=== PATIENT | female | born 1990 | race Caucasian/White ===

== ENCOUNTER 2016-08-20 11:59 | Inpatient (IN) | payer OTHER ==
[2016-08-20] MEDS ORDERED: Sodium Chloride 0.9% 10 ML Syringe FLUSH PRN (12:50)
[2016-08-20] MEDS ORDERED: Nalbuphine 20 MG/1 ML Amp IVPUSH PRN (12:50)
[2016-08-20] MEDS ORDERED: Lidocaine 1% 50 ML MDV INJECT PRN (12:50)
[2016-08-20] MEDS ORDERED: Oxytocin/Lactated Ringers 10 UNIT/1,000 ML BAG IV SCH (13:00)
--- NOTE | 2016-08-20 14:54 | PCM.PREANE ---
Preanesthetic Assessment - Anesthesia/Transfusion/Family Hx Anesthesia History: Prior Anesthesia Without Reaction Family History of Anesthesia Reaction: No Transfusion History: No Prior Transfusion(s) Intubation History: Unknown - Review of Systems General: No Symptoms Pulmonary: No Symptoms Cardiovascular: No Symptoms Gastrointestinal: Other (GERD at HS) Neurological: No Symptoms Other: Reports: None, Depression (controlled with medication ) - Physical Assessment Respiratory Rate: 18 Vital Signs: Last Vital Signs Temp 36.8 C 08/20/16 12:50 Pulse 87 08/20/16 12:50 Resp 18 08/20/16 12:50 BP 138/87 08/20/16 12:50 Pulse Ox Height: 1.65 m Weight: 97.522 kg ASA Class: 2 Mental Status: Alert & Oriented x3 Airway Class: Mallampati = 2 Dentition: Reports: Normal Dentition Thyro-Mental Finger Breadths: 3 Mouth Opening Finger Breadths: 3 ROM/Head Extension: Full Lungs: Clear to auscultation, Normal respiratory effort Cardiovascular: Regular Rate, Regular Rhythm - Lab Values: Laboratory Last Values WBC 12.85 K/mm3 (3.98-10.04) H 08/20/16 13:07 RBC 4.61 M/mm3 (3.98-5.22) 08/20/16 13:07 Hgb 13.2 gm/L (11.2-15.7) 08/20/16 13:07 Hct 39.7 % (34.1-44.9) 08/20/16 13:07 MCV 86.1 fl (79.4-94.8) 08/20/16 13:07 MCH 28.6 pg (25.6-32.2) 08/20/16 13:07 MCHC 33.2 g/dl (32.2-35.5) 08/20/16 13:07 RDW Std Deviation 42.9 fL (36.4-46.3) 08/20/16 13:07 Plt Count 212 K/mm3 (182-369) 08/20/16 13:07 MPV 10.1 fl (9.4-12.3) 08/20/16 13:07 - Allergies Allergies/Adverse Reactions: Allergies Allergy/AdvReac Type Severity Reaction Status Date / Time azithromycin Allergy Intermediate Diarrhea Verified 08/20/16 12:49 erythromycin base Allergy Intermediate Diarrhea Verified 08/20/16 12:49 latex Allergy Mild Rash Verified 08/20/16 12:50 - Blood Blood Available: No Product(s) Available: None - Acknowledgements Anesthesia Type Planned: Epidural Pt an Appropriate Candidate for the Planned Anesthesia: Yes Alternatives and Risks of Anesthesia Discussed w Pt/Guardian: Yes Pt/Guardian Understands and Agrees with Anesthesia Plan: Yes PreAnesthesia Questionnaire HEENT History: Reports: None Respiratory History: Reports: Asthma Other Respiratory History: exercise induced as a child, nothing as an adult, does not have an inhaler Genitourinary History: Reports: Urinary incontinence 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: Musculoskeletal History: Reports: None Neurological History: Reports: Headaches, chronic Psychiatric History: Reports: ADHD, Anxiety, Depression Other Psychiatric History: on zoloft - Infectious Disease History Infectious Disease History: Reports: None - Past Surgical History HEENT Surgical History: Reports: Oral surgery Respiratory Surgical History: Reports: None Musculoskeletal Surgical History: Reports: Ganglion cyst Other Musculoskeletal Surgeries/Procedures:: wrist Dermatological Surgical History: Reports: None - SUBSTANCE USE Smoking Status *Q: Former Smoker Tobacco Use Within Last Twelve Months: No Second Hand Smoke Exposure: No Recreational Drug Use History: No - HOME MEDS Home Medications: Home Meds Sertraline [Zoloft] 100 mg PO DAILY 04/20/16 [History] PNV95/Ferrous Fumarate/FA [ Vitamin Tablet] 1 each PO DAILY 08/20/16 [ History] - CURRENT (IN HOUSE) MEDS Current Meds: Current Medications Lactated Ringer's (Ringers, Lactated) 1,000 mls @ 100 mls/hr IV ASDIRECTED DIEGO Oxytocin/Lactated Ringer's (Pitocin In Lr 10 Units/1,000 Ml) 10 unit in 1,000 mls @ 100 mls/hr IV ASDIRECTED DIEGO Lidocaine HCl (Xylocaine 1%) 50 ml INJECT ONETIME PRN PRN Reason: Pain Nalbuphine HCl (Nubain) 10 mg IVPUSH Q2H PRN PRN Reason: Pain (moderate 4-6) Sodium Chloride (Saline Flush) 10 ml FLUSH ASDIRECTED PRN PRN Reason: Keep Vein Open
[2016-08-20] MEDS ORDERED: ePHEDrine 50 MG/ML SDV IVPUSH PRN (15:14)
[2016-08-20] MEDS ORDERED: fentaNYL 100 MCG/2 ML SDV EPIDUR PRN (15:14)
[2016-08-20] MEDS ORDERED: diphenhydrAMINE 50 MG/ML SDV IVPUSH PRN (15:14)
[2016-08-20] MEDS ORDERED: Ondansetron 4 MG/2 ML SDV IVPUSH PRN (15:14)
[2016-08-20] MEDS ORDERED: Bupivacaine/fentaNYL/NS 100 ML Bag EPIDUR SCH (15:15)
--- NOTE | 2016-08-20 22:04 | PCM.LDHP ---
L&D History of Present Illness - General Date of Service: 08/20/16 Admit Problem/Dx: Patient Status Order with Admit Dx/Problem 08/20/16 12:50 Patient Status [ADT] Routine Admission Diagnosis/Problem Admission Diagnosis/Problem Source of Information: Patient - History of Present Illness Introduction:: 25 year old female here with SROM clear fluid at 9 am. Minimal to no contractions. Improves with: Reports: None Worsens with: Reports: None Associated Symptoms: Reports: N - Related Data Allergies/Adverse Reactions: Allergies Allergy/AdvReac Type Severity Reaction Status Date / Time azithromycin Allergy Intermediate Diarrhea Verified 08/20/16 12:49 erythromycin base Allergy Intermediate Diarrhea Verified 08/20/16 12:49 latex Allergy Mild Rash Verified 08/20/16 12:50 Home Medications: Home Meds Sertraline [Zoloft] 100 mg PO DAILY 04/20/16 [History] PNV95/Ferrous Fumarate/FA [ Vitamin Tablet] 1 each PO DAILY 08/20/16 [ History] Past Medical History HEENT History: Reports: None Respiratory History: Reports: Asthma Other Respiratory History: exercise induced as a child, nothing as an adult, does not have an inhaler Genitourinary History: Reports: Urinary incontinence 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: Musculoskeletal History: Reports: None Neurological History: Reports: Headaches, chronic Psychiatric History: Reports: ADHD, Anxiety, Depression Other Psychiatric History: on zoloft - Infectious Disease History Infectious Disease History: Reports: None - Past Surgical History HEENT Surgical History: Reports: Oral surgery Respiratory Surgical History: Reports: None Musculoskeletal Surgical History: Reports: Ganglion cyst Other Musculoskeletal Surgeries/Procedures:: wrist Dermatological Surgical History: Reports: None Social & Family History - Family History Family Medical History: Noncontributory - Tobacco Use Smoking Status *Q: Former Smoker Used Tobacco, but Quit: Yes Month Tobacco Last Used: 09/2012 Second Hand Smoke Exposure: No - Caffeine Use Caffeine Use: Reports: Coffee, Soda - Recreational Drug Use Recreational Drug Use: No H&P Review of Systems - Review of Systems: Review Of Systems: See Below General: Reports: no symptoms HEENT: Reports: no symptoms Pulmonary: Reports: No Symptoms Cardiovascular: Reports: no symptoms Gastrointestinal: Reports: No symptoms Genitourinary: Reports: no symptoms Musculoskeletal: Reports: no symptoms Skin: Reports: no symptoms Psychiatric: Reports: no symptoms Neurological: Reports: No Symptoms Hematologic/Lymphatic: Reports: no symptoms Immunologic: Reports: no symptoms L&D Exam - Exam Exam: See Below - Vital Signs Vital Signs: Last Vital Signs Temp 36.8 C 08/20/16 12:50 Pulse 87 08/20/16 12:50 Resp 18 08/20/16 14:55 BP 138/87 08/20/16 12:50 Pulse Ox Weight: 97.522 kg - OB Specific Contraction Intensity: Irritability movement: active Heart Rate (FHR) Variability: Moderate (6-25 bmp) Presentation: Vertex - Sweeney Score Sweeney Score Cervix Position: Midposition Sweeney Score Consistency: Soft Sweeney Score Effacement: 0-30% Sweeney Score Dilation: 1-2 cm Sweeney Score Infant's Station: -3 Sweeney Score Total: 4 - Exam General: alert, oriented HEENT: Conjunctiva clear Neck: supple Lungs: Clear to auscultation Cardiovascular: regular rate Genitourinary: Normal external exam Psychiatric: alert, normal affect, normal mood - Patient Data Lab Results last 24 hrs: Laboratory Results - last 24 hr 08/20/16 Range/Units 13:07 WBC 12.85 H (3.98-10.04) K/mm3 RBC 4.61 (3.98-5.22) M/mm3 Hgb 13.2 (11.2-15.7) gm/L Hct 39.7 (34.1-44.9) % MCV 86.1 (79.4-94.8) fl MCH 28.6 (25.6-32.2) pg MCHC 33.2 (32.2-35.5) g/dl RDW Std Deviation 42.9 (36.4-46.3) fL Plt Count 212 (182-369) K/mm3 MPV 10.1 (9.4-12.3) fl Result Diagrams: 08/20/16 13:07 Problem List Initiated/Reviewed/Updated: Yes Orders Last 24hrs: Active Orders 24 hr Category Date Time Status Patient Status [ADT] Routine ADT 08/20/16 12:50 Active Activity as Tolerated [RC] PFP Care 08/20/16 12:50 Active Communication Order [RC] ASDIRECTED Care 08/20/16 12:50 Active Notify Provider [RC] PFP Care 08/20/16 12:50 Active Notify Provider [RC] PRN Care 08/20/16 12:50 Active Peripheral IV Care [RC] . DIRECTED Care 08/20/16 12:50 Active Vital Signs [RC] PER UNIT ROUTINE Care 08/20/16 12:50 Active Regular Diet [DIET] Diet 08/20/16 Lunch Active Bupivacaine/fentaNYL/NS [fentaNYL/Bupivacaine/NS 2 MCG- Med 08/20/16 15:15 Active 0.125% 100 ML] 100 ml EPIDUR ASDIRECTED Lactated Ringers [Ringers, Lactated] 1,000 ml Med 08/20/16 13:00 Active IV ASDIRECTED Lidocaine 1% [Xylocaine 1%] Med 08/20/16 12:50 Active 50 ml INJECT ONETIME PRN Nalbuphine [Nubain] Med 08/20/16 12:50 Active 10 mg IVPUSH Q2H PRN Ondansetron [Zofran] Med 08/20/16 15:14 Active 4 mg IVPUSH ONETIME PRN Oxytocin/Lactated Ringers [Pitocin in LR 10 Units/1,000 Med 08/20/16 13:00 Active ML] 10 unit in 1,000 ml IV ASDIRECTED Sodium Chloride 0.9% [Saline Flush] Med 08/20/16 12:50 Active 10 ml FLUSH ASDIRECTED PRN diphenhydrAMINE [Benadryl] Med 08/20/16 15:14 Active 25 mg IVPUSH Q6H PRN ePHEDrine [ePHEDrine Sulfate] Med 08/20/16 15:14 Active 5 mg IVPUSH ASDIRECTED PRN fentaNYL [Sublimaze] Med 08/20/16 15:14 Active 100 mcg EPIDUR Q3H PRN Electronic Heart Tones Ext w TOCO [WOMSER] Oth 08/20/16 12:50 Ordered Routine Electronic Heart Tones Internal [WOMSER] Per Unit Oth 08/20/16 12:50 Ordered Routine Peripheral IV Insertion Adult [OM.PC] Routine Oth 08/20/16 12:50 Ordered Resuscitation Status Routine Resus Stat 08/20/16 12:50 Ordered Medication Orders Diphenhydramine HCl (Benadryl) 25 mg IVPUSH Q6H PRN PRN Reason: Pruritis Ephedrine Sulfate (Ephedrine Sulfate) 5 mg IVPUSH ASDIRECTED PRN PRN Reason: Hypotension Fentanyl (Sublimaze) 100 mcg EPIDUR Q3H PRN PRN Reason: Pain Fentanyl/Bupivacaine HCl (Fentanyl/Bupivacaine/Ns 2 Mcg-0.125% 100 Ml) 100 ml EPIDUR ASDIRECTED DIEGO Lactated Ringer's (Ringers, Lactated) 1,000 mls @ 100 mls/hr IV ASDIRECTED DIEGO Oxytocin/Lactated Ringer's (Pitocin In Lr 10 Units/1,000 Ml) 10 unit in 1,000 mls @ 100 mls/hr IV ASDIRECTED DIEGO Lidocaine HCl (Xylocaine 1%) 50 ml INJECT ONETIME PRN PRN Reason: Pain Nalbuphine HCl (Nubain) 10 mg IVPUSH Q2H PRN PRN Reason: Pain (moderate 4-6) Ondansetron HCl (Zofran) 4 mg IVPUSH ONETIME PRN PRN Reason: Nausea/Vomiting Sodium Chloride (Saline Flush) 10 ml FLUSH ASDIRECTED PRN PRN Reason: Keep Vein Open Assessment/Plan Comment:: Term PROM. - Recommended induction -Patient at this time declines. - Stressed that induction after PROM beyond 37 weeks reduces rates of chorioamnionitis, endometritis, and admissions to level two nursery.
[2016-08-20] MEDS: Sertraline 50 MG Tab PO SCH (22:39)
[2016-08-21] MEDS ORDERED: Oxytocin/Lactated Ringers 10 UNIT/1,000 ML BAG IV SCH ×2 (04:15→13:15)
[2016-08-21] MEDS: Lactated Ringers 1,000 ML IV SCH ×3 (04:16→19:56)
--- NOTE | 2016-08-21 13:14 | PCM.PNLD ---
Labor Progress Note - VS & Meds Vital Signs: Last Vital Signs Temp 36.8 C 08/20/16 12:50 Pulse 87 08/20/16 12:50 Resp 18 08/20/16 14:55 BP 138/87 08/20/16 12:50 Pulse Ox Active Medications: Current Medications Diphenhydramine HCl (Benadryl) 25 mg IVPUSH Q6H PRN PRN Reason: Pruritis Ephedrine Sulfate (Ephedrine Sulfate) 5 mg IVPUSH ASDIRECTED PRN PRN Reason: Hypotension Fentanyl (Sublimaze) 100 mcg EPIDUR Q3H PRN PRN Reason: Pain Fentanyl/Bupivacaine HCl (Fentanyl/Bupivacaine/Ns 2 Mcg-0.125% 100 Ml) 100 ml EPIDUR ASDIRECTED DIEGO Lactated Ringer's (Ringers, Lactated) 1,000 mls @ 100 mls/hr IV ASDIRECTED DIEGO Last Admin: 08/21/16 04:16 Dose: 100 mls/hr Oxytocin/Lactated Ringer's (Pitocin In Lr 10 Units/1,000 Ml) 10 unit in 1,000 mls @ 100 mls/hr IV ASDIRECTED DIEGO Oxytocin/Lactated Ringer's (Pitocin In Lr 10 Units/1,000 Ml) 10 unit in 1,000 mls @ 12 mls/hr IV TITRATE DIEGO; 2 MUNITS/MIN PRN Reason: Protocol Last Titration: 08/21/16 09:41 Dose: 18 munits/min, 108 mls/hr Oxytocin/Lactated Ringer's (Pitocin In Lr 10 Units/1,000 Ml) 10 unit in 1,000 mls @ 12 mls/hr IV TITRATE DIEGO; 2 MUNITS/MIN PRN Reason: Protocol Lidocaine HCl (Xylocaine 1%) 50 ml INJECT ONETIME PRN PRN Reason: Pain Nalbuphine HCl (Nubain) 10 mg IVPUSH Q2H PRN PRN Reason: Pain (moderate 4-6) Ondansetron HCl (Zofran) 4 mg IVPUSH ONETIME PRN PRN Reason: Nausea/Vomiting Sertraline HCl (Zoloft) 100 mg PO BEDTIME DIEGO Last Admin: 08/20/16 22:39 Dose: 100 mg Sodium Chloride (Saline Flush) 10 ml FLUSH ASDIRECTED PRN PRN Reason: Keep Vein Open - Uterine Contractions Contraction Intensity: Irritability Uterine Resting Tone: Soft - Monitoring Heart Rate (FHR) Baseline: 150 Heart Rate (FHR) Variability: Moderate (6-25 bmp) Decelerations: None, Late Strip Review: Category I - Vaginal Exam Dilation (cm): 2 Effacement (Percent): 50 Station: -3 Cervical Position: Posterior Sterile Vaginal Exam Performed By: Rosa Alvarez - Labor Progress (Free Text) Labor Progress: Again encouraged active management of labor. Discussed risks.
--- NOTE | 2016-08-21 17:27 | PCM.PNLD ---
Labor Progress Note - VS & Meds Vital Signs: Last Vital Signs Temp 36.8 C 08/20/16 12:50 Pulse 87 08/20/16 12:50 Resp 18 08/20/16 14:55 BP 138/87 08/20/16 12:50 Pulse Ox Active Medications: Current Medications Diphenhydramine HCl (Benadryl) 25 mg IVPUSH Q6H PRN PRN Reason: Pruritis Ephedrine Sulfate (Ephedrine Sulfate) 5 mg IVPUSH ASDIRECTED PRN PRN Reason: Hypotension Fentanyl (Sublimaze) 100 mcg EPIDUR Q3H PRN PRN Reason: Pain Fentanyl/Bupivacaine HCl (Fentanyl/Bupivacaine/Ns 2 Mcg-0.125% 100 Ml) 100 ml EPIDUR ASDIRECTED DIEGO Lactated Ringer's (Ringers, Lactated) 1,000 mls @ 100 mls/hr IV ASDIRECTED DIEGO Last Admin: 08/21/16 04:16 Dose: 100 mls/hr Oxytocin/Lactated Ringer's (Pitocin In Lr 10 Units/1,000 Ml) 10 unit in 1,000 mls @ 100 mls/hr IV ASDIRECTED DIEGO Oxytocin/Lactated Ringer's (Pitocin In Lr 10 Units/1,000 Ml) 10 unit in 1,000 mls @ 12 mls/hr IV TITRATE DIEGO; 2 MUNITS/MIN PRN Reason: Protocol Last Titration: 08/21/16 17:10 Dose: 28 munits/min, 168 mls/hr Lidocaine HCl (Xylocaine 1%) 50 ml INJECT ONETIME PRN PRN Reason: Pain Nalbuphine HCl (Nubain) 10 mg IVPUSH Q2H PRN PRN Reason: Pain (moderate 4-6) Ondansetron HCl (Zofran) 4 mg IVPUSH ONETIME PRN PRN Reason: Nausea/Vomiting Sertraline HCl (Zoloft) 100 mg PO BEDTIME DIEGO Last Admin: 08/20/16 22:39 Dose: 100 mg Sodium Chloride (Saline Flush) 10 ml FLUSH ASDIRECTED PRN PRN Reason: Keep Vein Open Discontinued Medications Oxytocin/Lactated Ringer's (Pitocin In Lr 10 Units/1,000 Ml) 10 unit in 1,000 mls @ 12 mls/hr IV TITRATE DIEGO; 2 MUNITS/MIN PRN Reason: Protocol Last Titration: 08/21/16 14:11 Dose: 24 munits/min, 144 mls/hr Oxytocin 20 unit/ Lactated (Ringer's) 1,002 mls @ 12 mls/hr IV TITRATE DIEGO - Uterine Contractions Uterine Monitoring Mode: External Oakley Contraction Intensity: Moderate Uterine Resting Tone: Soft - Monitoring Heart Rate (FHR) Baseline: 145 Heart Rate (FHR) Variability: Moderate (6-25 bmp) Decelerations: Early (Rare) Strip Review: Category I - Labor Progress (Free Text) Labor Progress: Assumed care for this patient at 1700. Patient presented yesterday AM after SROM at ~0930. Initially checked and found to be 2 / 50% / 3-, soft and posterior. Declined pitocin until about 0400 this am. Was checked at about 1500 and found to be 3-4 / 80% / 2-, soft and mid-position. Pitocin currently at 26. Reviewed with patient risks of prolonged ROM. At this time, however, status reassuring and she is finally starting to feel uncomfortable. Will continue present management. Defer SVE until she is much more uncomfortable or maxed out on pitocin for several hours, whichever comes first. Amanda Castro MD
[2016-08-21] MEDS ORDERED: ePHEDrine 50 MG/ML SDV IVPUSH PRN (18:34)
[2016-08-21] MEDS ORDERED: diphenhydrAMINE 50 MG/ML SDV IVPUSH PRN (18:34)
[2016-08-21] MEDS ORDERED: fentaNYL 100 MCG/2 ML SDV EPIDUR PRN (18:34)
[2016-08-21] MEDS ORDERED: Bupivacaine/fentaNYL/NS 100 ML Bag EPIDUR SCH (18:45)
[2016-08-21] MEDS: Sertraline 50 MG Tab PO SCH (21:19)
[2016-08-21] MEDS ORDERED: Misoprostol 200 MCG Tab ONE (21:44)
--- NOTE | 2016-08-21 21:49 | PCM.SN ---
- Free Text/Narrative Note: 2129 Called L&D for update. Patient checked at 1830 and thought to be 4 cm. Received epidural after that time. Pitocin increased to 30 mU 20 minutes ago due to spacing of contractions. Just checked by nursing per my request and she is 6-7 cm. Tracing reviewed and FHR is 130, moderate variability, + accelerations, few rare variables - Category II. No fever per nursing. Will continue to assess patient closely. As long as maternal and status reassuring will have nursing repeat exam in ~3 hours if not indicated sooner. Amanda Castro
--- NOTE | 2016-08-22 01:20 | PCM.DEL ---
L & D Note - General Info Date of Service: 08/22/16 - Delivery Note Labor: augmented by oxytocin Delivery Outcome: Livebirth Delivery Method: Spontaneous Vaginal Delivery Infant Delivery Mode: Spontaneous Presentation: Right Occiput Anterior (ALMITA) Nuchal cord: none Anesthesia Type: Epidural Amniotic Fluid Description: Clear Episiotomy Type: None Laceration: none Suture type: vicryl Suture size: 3-0 Placenta: intact, spontaneous Cord: 3 vessels Estimated blood loss: 350 Resuscitation needed: Yes Milam: suctioned, bulb syringe, stimulated, warmed, blanket used, warmer used Score 1 min: 1 Score 5 min: 4 Score 10 min: 7 Delivery Comments (Free Text/Narrative):: Patient found to be complete and began pushing. With maternal pushing effort head delivered from an ALMITA presentation. With downward traction the shoulders did not deliver and head locked against perineum. Shoulder dystocia diagnosed. Legs placed into McRobert's and suprapubic pressure applied without delivery of the anterior shoulder. A hand was placed into the vagina and pressure placed along the posterior shoulder as not able to find space to put pressure on anterior shoulder. Eventually shoulder was able to be rotated out from under the pubic bone and baby delivered quickly. Total time of from delivery of head to body was 1 minute and 40 seconds. Infant taken to warm for assessment by Dr. Dooley. Cord segment obtained for gas. pH was 7.34 / 43 / 22. Cord blood obtained. Placenta allowed time to separate and then spontaneously expelled. Inspection of the perineum showed a 2nd degree laceration repaired with a 3-0 vicryl rapide in the typical fashion. - Patient Data Vitals - most recent: Last Vital Signs Temp 36.8 C 08/20/16 12:50 Pulse 87 08/20/16 12:50 Resp 18 08/20/16 14:55 BP 138/87 08/20/16 12:50 Pulse Ox 100 08/21/16 18:33 Weight - most recent: 97.522 kg I&O - last 24 hours: Intake & Output 08/21/16 08/21/16 08/22/16 14:59 22:59 06:59 Intake Total 120 0 Balance 120 0 Med Orders - Current: Current Medications Diphenhydramine HCl (Benadryl) 25 mg IVPUSH Q6H PRN PRN Reason: Pruritis Diphenhydramine HCl (Benadryl) 25 mg IVPUSH Q6H PRN PRN Reason: Itching Ephedrine Sulfate (Ephedrine Sulfate) 5 mg IVPUSH ASDIRECTED PRN PRN Reason: Hypotension Ephedrine Sulfate (Ephedrine Sulfate) 5 mg IVPUSH ASDIRECTED PRN PRN Reason: HYPOTENTSION Fentanyl (Sublimaze) 100 mcg EPIDUR Q3H PRN PRN Reason: Pain Last Admin: 08/21/16 18:56 Dose: 100 mcg Fentanyl (Sublimaze) 100 mcg EPIDUR Q3H PRN PRN Reason: PAIN Fentanyl/Bupivacaine HCl (Fentanyl/Bupivacaine/Ns 2 Mcg-0.125% 100 Ml) 100 ml EPIDUR ASDIRECTED DIEGO Last Admin: 08/21/16 18:57 Dose: 100 ml Fentanyl/Bupivacaine HCl (Fentanyl/Bupivacaine/Ns 2 Mcg-0.125% 100 Ml) 100 ml EPIDUR ASDIRECTED DIEGO Lactated Ringer's (Ringers, Lactated) 1,000 mls @ 100 mls/hr IV ASDIRECTED DIEGO Last Admin: 08/21/16 19:56 Dose: 100 mls/hr Oxytocin/Lactated Ringer's (Pitocin In Lr 10 Units/1,000 Ml) 10 unit in 1,000 mls @ 100 mls/hr IV ASDIRECTED DIEGO Oxytocin/Lactated Ringer's (Pitocin In Lr 10 Units/1,000 Ml) 10 unit in 1,000 mls @ 12 mls/hr IV TITRATE DIEGO; 2 MUNITS/MIN PRN Reason: Protocol Last Titration: 08/21/16 21:15 Dose: Infused Lidocaine HCl (Xylocaine 1%) 50 ml INJECT ONETIME PRN PRN Reason: Pain Nalbuphine HCl (Nubain) 10 mg IVPUSH Q2H PRN PRN Reason: Pain (moderate 4-6) Ondansetron HCl (Zofran) 4 mg IVPUSH ONETIME PRN PRN Reason: Nausea/Vomiting Sertraline HCl (Zoloft) 100 mg PO BEDTIME DIEGO Last Admin: 08/21/16 21:19 Dose: 100 mg Sodium Chloride (Saline Flush) 10 ml FLUSH ASDIRECTED PRN PRN Reason: Keep Vein Open Discontinued Medications Oxytocin/Lactated Ringer's (Pitocin In Lr 10 Units/1,000 Ml) 10 unit in 1,000 mls @ 12 mls/hr IV TITRATE DIEGO; 2 MUNITS/MIN PRN Reason: Protocol Last Titration: 08/21/16 14:11 Dose: 24 munits/min, 144 mls/hr Oxytocin 20 unit/ Lactated (Ringer's) 1,002 mls @ 12 mls/hr IV TITRATE DIEGO Misoprostol (Cytotec) Confirm Administered Dose 800 mcg .ROUTE .STK-MED ONE Stop: 08/21/16 21:45 - Problem List & Annotations (1) 39 weeks gestation of SNOMED Code(s): 58391920 Code(s): Z3A.39 - 39 WEEKS GESTATION OF Status: Acute Current Visit: Yes (2) Prolonged rupture of membranes SNOMED Code(s): 573582815 Code(s): O42.90 - LAYO ROM, 7TH0 BETW RUPT & ONST LABR, UNSP WEEKS OF GEST Status: Acute Current Visit: Yes (3) Shoulder dystocia during labor and delivery, delivered SNOMED Code(s): 15592672 Code(s): O66.0 - OBSTRUCTED LABOR DUE TO SHOULDER DYSTOCIA Status: Acute Current Visit: Yes (4) Vaginal delivery SNOMED Code(s): 087410396 Code(s): O80 - ENCOUNTER FOR FULL-TERM UNCOMPLICATED DELIVERY Status: Acute Current Visit: Yes - Problem List Review Problem List Initiated/Reviewed/Updated: Yes - Assessment Assessment:: 25 y/o G2 now P2002 PPD#0 from at 39 4/7 wks complicated by shoulder dystocia - Plan Plan:: with shoulder dystocia * Reviewed finding with patient and family. Will discuss more in the future * Routine care * Encourage breast feeding * Discharge home in 1-2 days
[2016-08-22] MEDS: Lactated Ringers 1,000 ML IV SCH (01:44)
[2016-08-22] MEDS ORDERED: Bupivacaine 0.25% 10 ML SDV ONE (02:00)
[2016-08-22] MEDS ORDERED: Lanolin 100% Cream 7 GM Tube TOP PRN (02:03)
[2016-08-22] MEDS ORDERED: Witch Hazel Medicated Pads 100/Jar TOP PRN (02:03)
[2016-08-22] MEDS ORDERED: Docusate Sodium 100 MG Cap PO PRN (02:03)
[2016-08-22] MEDS ORDERED: Benzocaine/Menthol 20%-0.5% Spray 56 GM Canister TOP PRN (02:03)
[2016-08-22] MEDS: Ibuprofen 600 MG Tab PO PRN ×4 (02:40→20:44)
[2016-08-22] MEDS ORDERED: Measles, Mumps & Rubella Vaccine 0.5 ML SDV SUBCUT ONE (20:24)
[2016-08-22] MEDS: Sertraline 50 MG Tab PO SCH (20:44)
[2016-08-23] MEDS: Ibuprofen 600 MG Tab PO PRN ×3 (03:36→19:24)
--- NOTE | 2016-08-23 06:30 | PCM.PNPP ---
- General Info Date of Service: 08/23/16 Functional Status: Reports: pain controlled, tolerating diet, ambulating, urinating - Review of Systems General: Reports: No Symptoms Pulmonary: Reports: no symptoms Cardiovascular: Reports: No Symptoms Gastrointestinal: Reports: No symptoms Genitourinary: Reports: no symptoms Musculoskeletal: Reports: no symptoms - Patient Data Vital Signs - most recent: Last Vital Signs Temp 36.5 C 08/23/16 04:00 Pulse 84 08/23/16 04:00 Resp 17 08/23/16 04:00 BP 122/60 08/23/16 04:00 Pulse Ox 96 08/23/16 04:00 Weight - most recent: 97.522 kg I&O - last 24 hours: Intake & Output 08/22/16 08/22/16 08/23/16 14:59 22:59 06:59 Intake Total 240 Balance 240 Med Orders - Current: Current Medications Acetaminophen (Tylenol) 650 mg PO Q4H PRN PRN Reason: mild pain or fever Benzocaine/Menthol (Dermoplast Pain Relief [place]) 0 gm TOP ASDIRECTED PRN PRN Reason: Perineal Comfort Measure Last Admin: 08/22/16 02:39 Dose: 1 applic Docusate Sodium (Colace) 100 mg PO BID PRN PRN Reason: Constipation Emollient Ointment (Lansinoh Hpa) 0 gm TOP ASDIRECTED PRN PRN Reason: Sore Nipples Ibuprofen (Motrin) 600 mg PO Q4H PRN PRN Reason: Mild pain or fever Last Admin: 08/23/16 03:36 Dose: 600 mg Sertraline HCl (Zoloft) 100 mg PO BEDTIME DIEGO Last Admin: 08/22/16 20:44 Dose: 100 mg Witch Aysha (Tucks) 1 pad TOP ASDIRECTED PRN PRN Reason: Hemorrhoid pain Last Admin: 08/22/16 02:40 Dose: 1 applic Discontinued Medications Diphenhydramine HCl (Benadryl) 25 mg IVPUSH Q6H PRN PRN Reason: Pruritis Diphenhydramine HCl (Benadryl) 25 mg IVPUSH Q6H PRN PRN Reason: Itching Ephedrine Sulfate (Ephedrine Sulfate) 5 mg IVPUSH ASDIRECTED PRN PRN Reason: Hypotension Ephedrine Sulfate (Ephedrine Sulfate) 5 mg IVPUSH ASDIRECTED PRN PRN Reason: HYPOTENTSION Fentanyl (Sublimaze) 100 mcg EPIDUR Q3H PRN PRN Reason: Pain Last Admin: 08/21/16 18:56 Dose: 100 mcg Fentanyl (Sublimaze) 100 mcg EPIDUR Q3H PRN PRN Reason: PAIN Fentanyl/Bupivacaine HCl (Fentanyl/Bupivacaine/Ns 2 Mcg-0.125% 100 Ml) 100 ml EPIDUR ASDIRECTED [place] Last Admin: 08/21/16 18:57 Dose: 100 ml Fentanyl/Bupivacaine HCl (Fentanyl/Bupivacaine/Ns 2 Mcg-0.125% 100 Ml) 100 ml EPIDUR ASDIRECTED [place] Lactated Ringer's (Ringers, Lactated) 1,000 mls @ 100 mls/hr IV ASDIRECTED [place] Last Admin: 08/22/16 01:44 Dose: 100 mls/hr Oxytocin/Lactated Ringer's (Pitocin In Lr 10 Units/1,000 Ml) 10 unit in 1,000 mls @ 100 mls/hr IV ASDIRECTED [place] Last Admin: 08/22/16 00:53 Dose: 100 mls/hr Oxytocin/Lactated Ringer's (Pitocin In Lr 10 Units/1,000 Ml) 10 unit in 1,000 mls @ 12 mls/hr IV TITRATE [place]; 2 MUNITS/MIN PRN Reason: Protocol Last Titration: 08/21/16 14:11 Dose: 24 munits/min, 144 mls/hr Oxytocin/Lactated Ringer's (Pitocin In Lr 10 Units/1,000 Ml) 10 unit in 1,000 mls @ 12 mls/hr IV TITRATE [place]; 2 MUNITS/MIN PRN Reason: Protocol Last Titration: 08/21/16 21:15 Dose: Infused Oxytocin 20 unit/ Lactated (Ringer's) 1,002 mls @ 12 mls/hr IV TITRATE [place] Lidocaine HCl (Xylocaine 1%) 50 ml INJECT ONETIME PRN PRN Reason: Pain Measles/Mumps/Rubella Vaccine Live (M-M-R Ii Vaccine) 0.5 ml SUBCUT .ONCE ONE Stop: 08/22/16 20:25 Last Admin: 08/22/16 20:45 Dose: 0.5 ml Misoprostol (Cytotec) Confirm Administered Dose 800 mcg .ROUTE .STK-MED ONE Stop: 08/21/16 21:45 Last Admin: 08/22/16 03:47 Dose: Not Given Nalbuphine HCl (Nubain) 10 mg IVPUSH Q2H PRN PRN Reason: Pain (moderate 4-6) Ondansetron HCl (Zofran) 4 mg IVPUSH ONETIME PRN PRN Reason: Nausea/Vomiting Sodium Chloride (Saline Flush) 10 ml FLUSH ASDIRECTED PRN PRN Reason: Keep Vein Open - Infant Interaction Disposition, : to Nursery Infant Interaction: To Nursery to Visit Feeding: Attempted ; Nursed Fair/Poor Support Person: , Mother - Recovery Exam Fundal Tone: Firm Fundal Level: 2 Fingerbreadths Below Umbilicus Fundal Placement: Midline Lochia Amount: Small Lochia Color: Rubra/Red Perineum Description: Other (see below) Other Perinuem Description: 2' laceration with repair; tucks and dermoplast in use Episiotomy/Laceration: Approximated Bladder Status: Voiding Urinary Elimination: Voided - Exam General: alert, oriented, cooperative Abdomen: soft, no tenderness Extremities: no edema Skin: warm, dry, intact - Problem List & Annotations (1) 39 weeks gestation of SNOMED Code(s): 03942430 Code(s): Z3A.39 - 39 WEEKS GESTATION OF Status: Acute Current Visit: Yes (2) Prolonged rupture of membranes SNOMED Code(s): 702621136 Code(s): O42.90 - LAYO ROM, 7TH0 BETW RUPT & ONST LABR, UNSP WEEKS OF GEST Status: Acute Current Visit: Yes (3) Shoulder dystocia during labor and delivery, delivered SNOMED Code(s): 44733506 Code(s): O66.0 - OBSTRUCTED LABOR DUE TO SHOULDER DYSTOCIA Status: Acute Current Visit: Yes (4) Vaginal delivery SNOMED Code(s): 172714928 Code(s): O80 - ENCOUNTER FOR FULL-TERM UNCOMPLICATED DELIVERY Status: Acute Current Visit: Yes - Problem List Review Problem List Initiated/Reviewed/Updated: Yes - My Orders Last 24 Hours: My Active Orders 08/22/16 20:24 Vaccines to be Administered [RC] PER UNIT ROUTINE 08/22/16 Breakfast Regular Diet [DIET] 08/23/16 02:03 Heat Therapy [OM.PC] PRN - Assessment Assessment:: 25 y/o G2 now P2002 PPD#1 from at 39 4/7 wks complicated by shoulder dystocia - Plan Plan:: with shoulder dystocia * Routine care * Encourage breast feeding * Discharge home in 1 day
--- NOTE | 2016-08-23 06:31 | PCM.DCSUM1 ---
Discharge Summary - Discharge Data Discharge Date: 08/23/16 Discharge Disposition: Home, Self-Care 01 Condition: Good - Discharge Diagnosis/Problem(s) (1) 39 weeks gestation of SNOMED Code(s): 25298505 ICD Code: Z3A.39 - 39 WEEKS GESTATION OF Status: Acute Current Visit: Yes (2) Prolonged rupture of membranes SNOMED Code(s): 424969062 ICD Code: O42.90 - LAYO ROM, 7TH0 BETW RUPT & ONST LABR, UNSP WEEKS OF GEST Status: Acute Current Visit: Yes (3) Shoulder dystocia during labor and delivery, delivered SNOMED Code(s): 88551045 ICD Code: O66.0 - OBSTRUCTED LABOR DUE TO SHOULDER DYSTOCIA Status: Acute Current Visit: Yes (4) Vaginal delivery SNOMED Code(s): 370805468 ICD Code: O80 - ENCOUNTER FOR FULL-TERM UNCOMPLICATED DELIVERY Status: Acute Current Visit: Yes - Patient Instructions Diet: Regular Diet as Tolerated Activity: As Tolerated Activity, Other: Pelvic Rest for 6 weeks Driving: May Drive Today Showering/Bathing: May Shower Notify Provider of: Fever, Increased Pain, Swelling and Redness, Drainage, Nausea and/or Vomiting - Discharge Plan Home Medications: Home Meds Sertraline [Zoloft] 100 mg PO DAILY 04/20/16 [History] PNV95/Ferrous Fumarate/FA [ Vitamin Tablet] 1 each PO DAILY 08/20/16 [ History] Ibuprofen [IJD: Ibuprofen] 600 mg PO Q4H PRN #0 tablet 08/22/16 [Rx] Referrals: Madison Milan MD [Primary Care Provider] - (5-6 weeks for check ) - Patient Data Vitals - Most Recent: Last Vital Signs Temp 36.5 C 08/23/16 04:00 Pulse 84 08/23/16 04:00 Resp 17 08/23/16 04:00 BP 122/60 08/23/16 04:00 Pulse Ox 96 08/23/16 04:00 Weight - Most Recent: 97.522 kg I&O - Last 24 hours: Intake & Output 08/22/16 08/22/16 08/23/16 14:59 22:59 06:59 Intake Total 240 Balance 240 Med Orders - Current: Current Medications Acetaminophen (Tylenol) 650 mg PO Q4H PRN PRN Reason: mild pain or fever Benzocaine/Menthol (Dermoplast Pain Relief [place]) 0 gm TOP ASDIRECTED PRN PRN Reason: Perineal Comfort Measure Last Admin: 08/22/16 02:39 Dose: 1 applic Docusate Sodium (Colace) 100 mg PO BID PRN PRN Reason: Constipation Emollient Ointment (Lansinoh Hpa) 0 gm TOP ASDIRECTED PRN PRN Reason: Sore Nipples Ibuprofen (Motrin) 600 mg PO Q4H PRN PRN Reason: Mild pain or fever Last Admin: 08/23/16 03:36 Dose: 600 mg Sertraline HCl (Zoloft) 100 mg PO BEDTIME DIEGO Last Admin: 08/22/16 20:44 Dose: 100 mg Witch Aysha (Tucks) 1 pad TOP ASDIRECTED PRN PRN Reason: Hemorrhoid pain Last Admin: 08/22/16 02:40 Dose: 1 applic Discontinued Medications Diphenhydramine HCl (Benadryl) 25 mg IVPUSH Q6H PRN PRN Reason: Pruritis Diphenhydramine HCl (Benadryl) 25 mg IVPUSH Q6H PRN PRN Reason: Itching Ephedrine Sulfate (Ephedrine Sulfate) 5 mg IVPUSH ASDIRECTED PRN PRN Reason: Hypotension Ephedrine Sulfate (Ephedrine Sulfate) 5 mg IVPUSH ASDIRECTED PRN PRN Reason: HYPOTENTSION Fentanyl (Sublimaze) 100 mcg EPIDUR Q3H PRN PRN Reason: Pain Last Admin: 08/21/16 18:56 Dose: 100 mcg Fentanyl (Sublimaze) 100 mcg EPIDUR Q3H PRN PRN Reason: PAIN Fentanyl/Bupivacaine HCl (Fentanyl/Bupivacaine/Ns 2 Mcg-0.125% 100 Ml) 100 ml EPIDUR ASDIRECTED [facility] Last Admin: 08/21/16 18:57 Dose: 100 ml Fentanyl/Bupivacaine HCl (Fentanyl/Bupivacaine/Ns 2 Mcg-0.125% 100 Ml) 100 ml EPIDUR ASDIRECTED [facility] Lactated Ringer's (Ringers, Lactated) 1,000 mls @ 100 mls/hr IV ASDIRECTED [facility] Last Admin: 08/22/16 01:44 Dose: 100 mls/hr Oxytocin/Lactated Ringer's (Pitocin In Lr 10 Units/1,000 Ml) 10 unit in 1,000 mls @ 100 mls/hr IV ASDIRECTED [place]IEGO Last Admin: 08/22/16 00:53 Dose: 100 mls/hr Oxytocin/Lactated Ringer's (Pitocin In Lr 10 Units/1,000 Ml) 10 unit in 1,000 mls @ 12 mls/hr IV TITRATE [place]; 2 MUNITS/MIN PRN Reason: Protocol Last Titration: 08/21/16 14:11 Dose: 24 munits/min, 144 mls/hr Oxytocin/Lactated Ringer's (Pitocin In Lr 10 Units/1,000 Ml) 10 unit in 1,000 mls @ 12 mls/hr IV TITRATE [place]; 2 MUNITS/MIN PRN Reason: Protocol Last Titration: 08/21/16 21:15 Dose: Infused Oxytocin 20 unit/ Lactated (Ringer's) 1,002 mls @ 12 mls/hr IV TITRATE [place] Lidocaine HCl (Xylocaine 1%) 50 ml INJECT ONETIME PRN PRN Reason: Pain Measles/Mumps/Rubella Vaccine Live (M-M-R Ii Vaccine) 0.5 ml SUBCUT .ONCE ONE Stop: 08/22/16 20:25 Last Admin: 08/22/16 20:45 Dose: 0.5 ml Misoprostol (Cytotec) Confirm Administered Dose 800 mcg .ROUTE .STK-MED ONE Stop: 08/21/16 21:45 Last Admin: 08/22/16 03:47 Dose: Not Given Nalbuphine HCl (Nubain) 10 mg IVPUSH Q2H PRN PRN Reason: Pain (moderate 4-6) Ondansetron HCl (Zofran) 4 mg IVPUSH ONETIME PRN PRN Reason: Nausea/Vomiting Sodium Chloride (Saline Flush) 10 ml FLUSH ASDIRECTED PRN PRN Reason: Keep Vein Open *Q Meaningful Use (DIS) - VTE *Q VTE Criteria *Q: - Stroke *Q Stroke Criteria *Q: - AMI *Q AMI Criteria *Q:
[2016-08-23] MEDS ORDERED: LORazepam 0.5 MG Tab PO ONE (08:58)
[2016-08-23] MEDS: Acetaminophen 325 MG Tab PO PRN ×2 (14:13→21:24)
[2016-08-23] MEDS: Sertraline 50 MG Tab PO SCH (21:24)
[2016-08-24] MEDS: Ibuprofen 600 MG Tab PO PRN (03:12)
--- NOTE | 2016-08-24 06:40 | PCM.DCSUM1 ---
Discharge Summary - Discharge Data Discharge Date: 08/24/16 Discharge Disposition: Home, Self-Care 01 Condition: Good - Discharge Diagnosis/Problem(s) (1) 39 weeks gestation of SNOMED Code(s): 73192742 ICD Code: Z3A.39 - 39 WEEKS GESTATION OF Status: Acute Current Visit: Yes (2) Prolonged rupture of membranes SNOMED Code(s): 019759187 ICD Code: O42.90 - LAYO ROM, 7TH0 BETW RUPT & ONST LABR, UNSP WEEKS OF GEST Status: Acute Current Visit: Yes (3) Shoulder dystocia during labor and delivery, delivered SNOMED Code(s): 73493834 ICD Code: O66.0 - OBSTRUCTED LABOR DUE TO SHOULDER DYSTOCIA Status: Acute Current Visit: Yes (4) Vaginal delivery SNOMED Code(s): 521860582 ICD Code: O80 - ENCOUNTER FOR FULL-TERM UNCOMPLICATED DELIVERY Status: Acute Current Visit: Yes - Patient Summary/Data Complications: None Consults: None Recommended Follow-up Testing/Procedures: Follow up in 5-6 weeks for check Hospital Course: Patient is a 25-year-old who presented on 20 of August at 39-2/7 weeks gestation with rupture of membranes. She initially declined Pitocin until the teacher early childhood development of the , approximately 24 hours post-rupture. She then progressed slowly to complete dilation. She eventually underwent a vaginal delivery which was complicated by a shoulder dystocia in the teacher early childhood development hours of the . See delivery note for full details. Was ruptured for approximately 40 hours or so before delivery, but had no signs of infection. she did well and was meeting all goals by day #2. She was thus discharged from the hospital with plans to follow up in 5-6 weeks for check. - Patient Instructions Diet: Regular Diet as Tolerated Activity: As Tolerated Activity, Other: Pelvic Rest for 6 weeks Driving: May Drive Today Showering/Bathing: May Shower Notify Provider of: Fever, Increased Pain, Swelling and Redness, Drainage, Nausea and/or Vomiting - Discharge Plan Home Medications: Home Meds Sertraline [Zoloft] 100 mg PO DAILY 04/20/16 [History] PNV95/Ferrous Fumarate/FA [ Vitamin Tablet] 1 each PO DAILY 08/20/16 [ History] Ibuprofen [IJD: Ibuprofen] 600 mg PO Q4H PRN #0 tablet 08/22/16 [Rx] Referrals: Madison Milan MD [Primary Care Provider] - (5-6 weeks for check ) - Discharge Summary/Plan Comment DC Time >30 min.: No - Patient Data Vitals - Most Recent: Last Vital Signs Temp 36.9 C 08/24/16 04:04 Pulse 88 08/24/16 04:04 Resp 16 08/24/16 04:04 BP 124/75 08/24/16 04:04 Pulse Ox 98 08/24/16 04:04 Weight - Most Recent: 97.522 kg I&O - Last 24 hours: Intake & Output 08/23/16 08/23/16 08/24/16 14:59 22:59 06:59 Intake Total 0 0 Balance 0 0 Med Orders - Current: Current Medications Acetaminophen (Tylenol) 650 mg PO Q4H PRN PRN Reason: mild pain or fever Last Admin: 08/23/16 21:24 Dose: 650 mg Benzocaine/Menthol (Dermoplast Pain Relief [place]) 0 gm TOP ASDIRECTED PRN PRN Reason: Perineal Comfort Measure Last Admin: 08/22/16 02:39 Dose: 1 applic Docusate Sodium (Colace) 100 mg PO BID PRN PRN Reason: Constipation Emollient Ointment (Lansinoh Hpa) 0 gm TOP ASDIRECTED PRN PRN Reason: Sore Nipples Ibuprofen (Motrin) 600 mg PO Q4H PRN PRN Reason: Mild pain or fever Last Admin: 08/24/16 03:12 Dose: 600 mg Sertraline HCl (Zoloft) 100 mg PO BEDTIME DIEGO Last Admin: 08/23/16 21:24 Dose: 100 mg Witch Aysha (Tucks) 1 pad TOP ASDIRECTED PRN PRN Reason: Hemorrhoid pain Last Admin: 08/22/16 02:40 Dose: 1 applic Discontinued Medications Bupivacaine HCl (Sensorcaine-Mpf 0.25%) 10 ml .ROUTE .STK-MED ONE Stop: 08/22/16 02:01 Diphenhydramine HCl (Benadryl) 25 mg IVPUSH Q6H PRN PRN Reason: Pruritis Diphenhydramine HCl (Benadryl) 25 mg IVPUSH Q6H PRN PRN Reason: Itching Ephedrine Sulfate (Ephedrine Sulfate) 5 mg IVPUSH ASDIRECTED PRN PRN Reason: Hypotension Ephedrine Sulfate (Ephedrine Sulfate) 5 mg IVPUSH ASDIRECTED PRN PRN Reason: HYPOTENTSION Fentanyl (Sublimaze) 100 mcg EPIDUR Q3H PRN PRN Reason: Pain Last Admin: 08/21/16 18:56 Dose: 100 mcg Fentanyl (Sublimaze) 100 mcg EPIDUR Q3H PRN PRN Reason: PAIN Fentanyl/Bupivacaine HCl (Fentanyl/Bupivacaine/Ns 2 Mcg-0.125% 100 Ml) 100 ml EPIDUR ASDIRECTED [place] Last Admin: 08/21/16 18:57 Dose: 100 ml Fentanyl/Bupivacaine HCl (Fentanyl/Bupivacaine/Ns 2 Mcg-0.125% 100 Ml) 100 ml EPIDUR ASDIRECTED [place] Lactated Ringer's (Ringers, Lactated) 1,000 mls @ 100 mls/hr IV ASDIRECTED [place] Last Admin: 08/22/16 01:44 Dose: 100 mls/hr Oxytocin/Lactated Ringer's (Pitocin In Lr 10 Units/1,000 Ml) 10 unit in 1,000 mls @ 100 mls/hr IV ASDIRECTED [place] Last Admin: 08/22/16 00:53 Dose: 100 mls/hr Oxytocin/Lactated Ringer's (Pitocin In Lr 10 Units/1,000 Ml) 10 unit in 1,000 mls @ 12 mls/hr IV TITRATE [place]; 2 MUNITS/MIN PRN Reason: Protocol Last Titration: 08/21/16 14:11 Dose: 24 munits/min, 144 mls/hr Oxytocin/Lactated Ringer's (Pitocin In Lr 10 Units/1,000 Ml) 10 unit in 1,000 mls @ 12 mls/hr IV TITRATE [place]; 2 MUNITS/MIN PRN Reason: Protocol Last Titration: 08/21/16 21:15 Dose: Infused Oxytocin 20 unit/ Lactated (Ringer's) 1,002 mls @ 12 mls/hr IV TITRATE [place] Lidocaine HCl (Xylocaine 1%) 50 ml INJECT ONETIME PRN PRN Reason: Pain Lorazepam (Ativan) 0.5 mg PO ONETIME ONE Stop: 08/23/16 08:59 Last Admin: 08/23/16 10:56 Dose: Not Given Measles/Mumps/Rubella Vaccine Live (M-M-R Ii Vaccine) 0.5 ml SUBCUT .ONCE ONE Stop: 08/22/16 20:25 Last Admin: 08/22/16 20:45 Dose: 0.5 ml Misoprostol (Cytotec) Confirm Administered Dose 800 mcg .ROUTE .STK-MED ONE Stop: 08/21/16 21:45 Last Admin: 08/22/16 03:47 Dose: Not Given Nalbuphine HCl (Nubain) 10 mg IVPUSH Q2H PRN PRN Reason: Pain (moderate 4-6) Ondansetron HCl (Zofran) 4 mg IVPUSH ONETIME PRN PRN Reason: Nausea/Vomiting Sodium Chloride (Saline Flush) 10 ml FLUSH ASDIRECTED PRN PRN Reason: Keep Vein Open *Q Meaningful Use (DIS) - VTE *Q VTE Criteria *Q: - Stroke *Q Stroke Criteria *Q: - AMI *Q AMI Criteria *Q:
--- NOTE | 2016-08-24 06:40 | PCM.PNPP ---
- General Info Date of Service: 08/24/16 Functional Status: Reports: pain controlled, tolerating diet, ambulating, urinating - Review of Systems General: Reports: No Symptoms Pulmonary: Reports: no symptoms Cardiovascular: Reports: No Symptoms Gastrointestinal: Reports: No symptoms Genitourinary: Reports: no symptoms Musculoskeletal: Reports: no symptoms - Patient Data Vital Signs - most recent: Last Vital Signs Temp 36.9 C 08/24/16 04:04 Pulse 88 08/24/16 04:04 Resp 16 08/24/16 04:04 BP 124/75 08/24/16 04:04 Pulse Ox 98 08/24/16 04:04 Weight - most recent: 97.522 kg I&O - last 24 hours: Intake & Output 08/23/16 08/23/16 08/24/16 14:59 22:59 06:59 Intake Total 0 0 Balance 0 0 Med Orders - Current: Current Medications Acetaminophen (Tylenol) 650 mg PO Q4H PRN PRN Reason: mild pain or fever Last Admin: 08/23/16 21:24 Dose: 650 mg Benzocaine/Menthol (Dermoplast Pain Relief [place]) 0 gm TOP ASDIRECTED PRN PRN Reason: Perineal Comfort Measure Last Admin: 08/22/16 02:39 Dose: 1 applic Docusate Sodium (Colace) 100 mg PO BID PRN PRN Reason: Constipation Emollient Ointment (Lansinoh Hpa) 0 gm TOP ASDIRECTED PRN PRN Reason: Sore Nipples Ibuprofen (Motrin) 600 mg PO Q4H PRN PRN Reason: Mild pain or fever Last Admin: 08/24/16 03:12 Dose: 600 mg Sertraline HCl (Zoloft) 100 mg PO BEDTIME DIEGO Last Admin: 08/23/16 21:24 Dose: 100 mg Witch Aysha (Tucks) 1 pad TOP ASDIRECTED PRN PRN Reason: Hemorrhoid pain Last Admin: 08/22/16 02:40 Dose: 1 applic Discontinued Medications Bupivacaine HCl (Sensorcaine-Mpf 0.25%) 10 ml .ROUTE .STK-MED ONE Stop: 08/22/16 02:01 Diphenhydramine HCl (Benadryl) 25 mg IVPUSH Q6H PRN PRN Reason: Pruritis Diphenhydramine HCl (Benadryl) 25 mg IVPUSH Q6H PRN PRN Reason: Itching Ephedrine Sulfate (Ephedrine Sulfate) 5 mg IVPUSH ASDIRECTED PRN PRN Reason: Hypotension Ephedrine Sulfate (Ephedrine Sulfate) 5 mg IVPUSH ASDIRECTED PRN PRN Reason: HYPOTENTSION Fentanyl (Sublimaze) 100 mcg EPIDUR Q3H PRN PRN Reason: Pain Last Admin: 08/21/16 18:56 Dose: 100 mcg Fentanyl (Sublimaze) 100 mcg EPIDUR Q3H PRN PRN Reason: PAIN Fentanyl/Bupivacaine HCl (Fentanyl/Bupivacaine/Ns 2 Mcg-0.125% 100 Ml) 100 ml EPIDUR ASDIRECTED [place] Last Admin: 08/21/16 18:57 Dose: 100 ml Fentanyl/Bupivacaine HCl (Fentanyl/Bupivacaine/Ns 2 Mcg-0.125% 100 Ml) 100 ml EPIDUR ASDIRECTED [place] Lactated Ringer's (Ringers, Lactated) 1,000 mls @ 100 mls/hr IV ASDIRECTED [place] Last Admin: 08/22/16 01:44 Dose: 100 mls/hr Oxytocin/Lactated Ringer's (Pitocin In Lr 10 Units/1,000 Ml) 10 unit in 1,000 mls @ 100 mls/hr IV ASDIRECTED [place] Last Admin: 08/22/16 00:53 Dose: 100 mls/hr Oxytocin/Lactated Ringer's (Pitocin In Lr 10 Units/1,000 Ml) 10 unit in 1,000 mls @ 12 mls/hr IV TITRATE [place]; 2 MUNITS/MIN PRN Reason: Protocol Last Titration: 08/21/16 14:11 Dose: 24 munits/min, 144 mls/hr Oxytocin/Lactated Ringer's (Pitocin In Lr 10 Units/1,000 Ml) 10 unit in 1,000 mls @ 12 mls/hr IV TITRATE [place]; 2 MUNITS/MIN PRN Reason: Protocol Last Titration: 08/21/16 21:15 Dose: Infused Oxytocin 20 unit/ Lactated (Ringer's) 1,002 mls @ 12 mls/hr IV TITRATE [place] Lidocaine HCl (Xylocaine 1%) 50 ml INJECT ONETIME PRN PRN Reason: Pain Lorazepam (Ativan) 0.5 mg PO ONETIME ONE Stop: 08/23/16 08:59 Last Admin: 08/23/16 10:56 Dose: Not Given Measles/Mumps/Rubella Vaccine Live (M-M-R Ii Vaccine) 0.5 ml SUBCUT .ONCE ONE Stop: 08/22/16 20:25 Last Admin: 08/22/16 20:45 Dose: 0.5 ml Misoprostol (Cytotec) Confirm Administered Dose 800 mcg .ROUTE .STK-MED ONE Stop: 08/21/16 21:45 Last Admin: 08/22/16 03:47 Dose: Not Given Nalbuphine HCl (Nubain) 10 mg IVPUSH Q2H PRN PRN Reason: Pain (moderate 4-6) Ondansetron HCl (Zofran) 4 mg IVPUSH ONETIME PRN PRN Reason: Nausea/Vomiting Sodium Chloride (Saline Flush) 10 ml FLUSH ASDIRECTED PRN PRN Reason: Keep Vein Open - Interaction Infant Disposition, : [place] to Nursery Infant Interaction: To Nursery to Visit Infant Feeding: Attempted ; Nursed Fair/Poor Support Person: , Mother - Recovery Exam Fundal Tone: Firm Fundal Level: 1 Fingerbreadths Below Umbilicus Fundal Placement: Midline Lochia Amount: Small Lochia Color: Rubra/Red Perineum Description: Other (see below) Other Perinuem Description: 2'lac with repair; tucks and derm in use Episiotomy/Laceration: Approximated Bladder Status: Voiding Urinary Elimination: Voided - Exam General: alert, oriented, cooperative Abdomen: soft, no tenderness Extremities: no edema Skin: warm, dry, intact - Problem List & Annotations (1) 39 weeks gestation of SNOMED Code(s): 44566988 Code(s): Z3A.39 - 39 WEEKS GESTATION OF Status: Acute Current Visit: Yes (2) Prolonged rupture of membranes SNOMED Code(s): 208697704 Code(s): O42.90 - LAYO ROM, 7TH0 BETW RUPT & ONST LABR, UNSP WEEKS OF GEST Status: Acute Current Visit: Yes (3) Shoulder dystocia during labor and delivery, delivered SNOMED Code(s): 68162805 Code(s): O66.0 - OBSTRUCTED LABOR DUE TO SHOULDER DYSTOCIA Status: Acute Current Visit: Yes (4) Vaginal delivery SNOMED Code(s): 349699965 Code(s): O80 - ENCOUNTER FOR FULL-TERM UNCOMPLICATED DELIVERY Status: Acute Current Visit: Yes - Problem List Review Problem List Initiated/Reviewed/Updated: Yes - My Orders Last 24 Hours: My Active Orders 08/23/16 06:30 Ready for Discharge [RC] PER UNIT ROUTINE 08/24/16 06:39 Ready for Discharge [RC] PER UNIT ROUTINE - Assessment Assessment:: 25 y/o G2 now P2002 PPD#2 from at 39 4/7 wks complicated by shoulder dystocia - Plan Plan:: with shoulder dystocia * Routine care * Encourage breast feeding * Discharge home today
[2016-08-24] MEDS: Acetaminophen 325 MG Tab PO PRN (06:56)
[2016-08-24 10:22] VITALS: BP 129/77
== END 2016-08-24 10:15 | disposition home or self-care (01) | DRG 775 ==
LOC: JD.OBCHECK 11:59 → JD.OB 12:00 → JD.OBCHECK 12:50 → JD.OB 08-22 00:52 → OBSVTOIN 08-22 00:52
PROVIDERS: ADMIT Obstetrics & Gynecology; ATTEND Obstetrics & Gynecology
PROC: 10E0XZZ Delivery of Products of Conception, External Approach (ICD-10-PCS; principal; 2016-08-22)
PROC: 0KQM0ZZ Repair Perineum Muscle, Open Approach (ICD-10-PCS; 2016-08-22)
PROC: 00HU33Z Insertion of Infusion Device into Spinal Canal, Percutaneous Approach (ICD-10-PCS; 2016-08-22)
PROC: 3E0R3CZ (ICD-10-PCS; 2016-08-22)
PROC: 3E0234Z Introduction of Serum, Toxoid and Vaccine into Muscle, Percutaneous Approach (ICD-10-PCS; 2016-08-22)
DX: O42.12 Full-term premature rupture of membranes, onset of labor more than 24 hours following rupture (principal); O70.1 Second degree perineal laceration during delivery; O66.0 Obstructed labor due to shoulder dystocia; Z3A.40 40 weeks gestation of pregnancy; Z37.0 Single live birth; Z23 Encounter for immunization; Z88.1 Allergy status to other antibiotic agents; Z91.040 Latex allergy status; O99.344 Other mental disorders complicating childbirth; F41.9 Anxiety disorder, unspecified; F32.9 Major depressive disorder, single episode, unspecified; Z79.899 Other long term (current) drug therapy; Z87.891 Personal history of nicotine dependence
CPT/HCPCS: 01967; 36415; 82803; 85027; 90707; A9270-GY; J2590; J3010; J7120

== ENCOUNTER 2021-09-09 06:58 | Inpatient (IN) | payer BC ==
[2021-09-09] MEDS ORDERED: Ondansetron 4 MG/2 ML SDV IVPUSH PRN (07:18)
[2021-09-09] MEDS ORDERED: Sodium Chloride 0.9% 10 ML Syringe FLUSH PRN (07:18)
[2021-09-09] MEDS ORDERED: Nalbuphine HCl 10 MG/ 1ML Amp IVPUSH PRN (07:18)
[2021-09-09] MEDS ORDERED: Oxytocin/Lactated Ringers 10 UNIT/1,000 ML BAG IV SCH ×2 (07:30→07:45)
[2021-09-09] MEDS: Lactated Ringers 1,000 ML IV SCH ×2 (07:53→21:19)
[2021-09-09] MEDS: Sodium Chloride 0.9% 10 ML Syringe FLUSH SCH ×2 (11:00→21:31)
[2021-09-09] MEDS ORDERED: diphenhydrAMINE 50 MG/ML SDV IVPUSH PRN (14:51)
[2021-09-09] MEDS ORDERED: Bupivacaine/fentaNYL/NS 100 ML Bag EPIDUR PRN (14:51)
[2021-09-09] MEDS ORDERED: fentaNYL 100 MCG/2 ML SDV EPIDUR PRN (14:51)
[2021-09-09] MEDS ORDERED: ePHEDrine 50 MG/ML SDV IVPUSH PRN (14:51)
[2021-09-09] MEDS ORDERED: Oxytocin/Lactated Ringers 20 UNIT/1,000 ML BAG IV SCH ×2 (19:00→19:45)
[2021-09-09] MEDS ORDERED: Oxytocin 10 Units/1 ML SDV ONE (19:47)
[2021-09-10] MEDS ORDERED: Bupivacaine 0.25% 10 ML SDV ONE
[2021-09-10] MEDS ORDERED: Metoclopramide 10 MG/2 ML SDV IVPUSH ONE (12:30)
[2021-09-10] MEDS ORDERED: Azithromycin 500 MG in Sodium Chloride 0.9% 250 ML IV ONE (12:30)
[2021-09-10] MEDS ORDERED: Citric Acid/Sodium Citrate Solution 30 ML Cup PO ONE (12:30)
[2021-09-10] MEDS ORDERED: ceFAZolin 2 GM in Sodium Chloride 0.9% 50 ML IV ONE (12:30)
[2021-09-10] MEDS ORDERED: Ketorolac 30 MG/ML SDV ONE (14:34)
[2021-09-10] MEDS ORDERED: Ondansetron 4 MG/2 ML SDV ONE (14:48)
[2021-09-10] MEDS ORDERED: Morphine PF 10 MG/10 ML SDV ONE (14:50)
[2021-09-10] MEDS ORDERED: fentaNYL 100 MCG/2 ML SDV ONE (14:50)
[2021-09-10] MEDS ORDERED: Oxytocin 10 Units/1 ML SDV ONE (14:50)
[2021-09-10] MEDS ORDERED: Ondansetron 4 MG/2 ML SDV IVPUSH PRN (15:30)
[2021-09-10] MEDS ORDERED: fentaNYL 100 MCG/2 ML SDV IVPUSH PRN (15:30)
[2021-09-10] MEDS ORDERED: diphenhydrAMINE 50 MG/ML SDV IVPUSH PRN ×2 (15:30→16:32)
[2021-09-10] MEDS ORDERED: Acetaminophen/oxyCODONE 325-5 MG Tab PO PRN (16:32)
[2021-09-10] MEDS ORDERED: Ondansetron 4 MG/2 ML SDV IV PRN (16:32)
[2021-09-10] MEDS ORDERED: ePHEDrine 50 MG/ML SDV IVPUSH PRN (16:32)
[2021-09-10] MEDS ORDERED: Dextrose 5%-Lactated Ringers 1,000 ML IV SCH (16:32)
[2021-09-10] MEDS ORDERED: Ketorolac 30 MG/ML SDV IVPUSH SCH (21:00)
[2021-09-11] MEDS: LORazepam 0.5 MG Tab PO PRN ×2 (00:20→21:15)
[2021-09-11] MEDS: Ketorolac 30 MG/ML SDV IVPUSH SCH ×2 (05:37→11:31)
[2021-09-11] MEDS: DULoxetine 30 MG Cap PO SCH (13:33)
[2021-09-11] MEDS: Ibuprofen 600 MG Tab PO PRN (17:30)
[2021-09-12] MEDS: Ibuprofen 600 MG Tab PO PRN ×3 (00:10→14:07)
[2021-09-12] MEDS: Acetaminophen/oxyCODONE 325-5 MG Tab PO PRN ×2 (04:46→10:28)
[2021-09-12] MEDS: DULoxetine 30 MG Cap PO SCH (09:38)
[2021-09-12] MEDS ORDERED: Docusate Sodium 100 MG Cap PO ONE (10:30)
[2021-09-12] MEDS ORDERED: Simethicone 80 MG Tab.Chew PO ONE (12:26)
[2021-09-12 14:27] VITALS: BP 131/75; PULSE 98
== END 2021-09-12 14:20 | disposition home or self-care (01) | DRG 540 ==
LOC: JD.OB 06:58 → OBSVTOIN 09-10 14:31 → JD.OB 09-10 14:32
PROVIDERS: ADMIT Obstetrics & Gynecology; ATTEND Obstetrics & Gynecology
PROC: 10D00Z1 Extraction of Products of Conception, Low, Open Approach (ICD-10-PCS; principal; 2021-09-10)
PROC: 10907ZC Drainage of Amniotic Fluid, Therapeutic from Products of Conception, Via Natural or Artificial Opening (ICD-10-PCS; 2021-09-10)
PROC: 3E033VJ Introduction of Other Hormone into Peripheral Vein, Percutaneous Approach (ICD-10-PCS; 2021-09-10)
PROC: 0U7C7ZZ Dilation of Cervix, Via Natural or Artificial Opening (ICD-10-PCS; 2021-09-10)
PROC: 4A1HXCZ Monitoring of Products of Conception, Cardiac Rate, External Approach (ICD-10-PCS; 2021-09-10)
DX: O13.4 Gestational [pregnancy-induced] hypertension without significant proteinuria, complicating childbirth (principal); Z3A.37 37 weeks gestation of pregnancy; Z37.0 Single live birth; Z91.040 Latex allergy status; Z88.1 Allergy status to other antibiotic agents; Z87.891 Personal history of nicotine dependence; Z86.16 Personal history of COVID-19; O62.2 Other uterine inertia
CPT/HCPCS: 36415; 59025; 82565; 82570; 84156; 84450; 84460; 85027; 86592; 86850; 86900; 86901; 94762; A9270-GY; C1726; J0456; J1885; J2274; J2405; J2590; J2765; J3010; J3490; J7050; J7120; J7121

== ENCOUNTER 2022-09-06 05:33 | Emergency (ER) | payer BC ==
[2022-09-06] MEDS ORDERED: Lactated Ringers 1,000 ML IV ONE ×3 (06:00→06:53)
[2022-09-06] MEDS ORDERED: Ondansetron 4 MG/2 ML SDV IVPUSH ONE (06:01)
[2022-09-06 06:14] LABS: BASOPHILS ABSOLUTE AUTO 0.02 K/mm3 (0.01-0.08); BASOPHILS PERCENT AUTO 0.2 % (0.1-1.2); EOSINOPHILS ABSOLUTE AUTO 0.01 K/mm3 (0.04-0.36); EOSINOPHILS PERCENT AUTO 0.1 (0.7-5.8); HEMATOCRIT 47.3 % (34.1-44.9); HEMOGLOBIN 15.9 gm/dl (11.2-15.7); IMMATURE GRAN ABSOLUTE AUTO 0.02 K/mm3 (0.00-0.10); IMMATURE GRAN PERCENT AUTO 0.2 % (<=1.0); LYMPHOCYTES ABSOLUTE AUTO 0.47 K/mm3 (1.18-3.74); LYMPHOCYTES PERCENT AUTO 4.4 % (19.3-51.7); MEAN CORPUSCULAR HEMOGLOBIN 29.2 pg (25.6-32.2); MEAN CORPUSCULAR HGB CONC 33.6 g/dl (32.2-35.5); MEAN CORPUSCULAR VOLUME 86.8 fl (79.4-94.8); MEAN PLATELET VOLUME 10.2 fl (9.4-12.3); MONOCYTES ABSOLUTE AUTO 0.52 K/mm3 (0.24-0.36); MONOCYTES PERCENT AUTO 4.9 % (4.7-12.5); NEUTROPHILS ABSOLUTE AUTO 9.57 K/mm3 (1.56-6.13); NEUTROPHILS PERCENT AUTO 90.2 % (34.0-71.1); PLATELET COUNT,PLT 282 K/mm3 (182-369); RED BLOOD CELL COUNT 5.45 M/mm3 (3.98-5.22); WHITE BLOOD CELL COUNT,WBC 10.61 K/mm3 (3.98-10.04)
[2022-09-06 06:15] LABS: APPEARANCE,URINE CLEAR (Clear); BILIRUBIN,URINE NEGATIVE (Negative); COLOR,URINE YELLOW (Yellow); GLUCOSE,URINE NEGATIVE (Negative); KETONES,URINE NEGATIVE (Negative); LEUKOCYTE ESTERASE,URINE NEGATIVE (Negative); NITRITE,URINE NEGATIVE (Negative); OCCULT BLOOD,URINE NEGATIVE (Negative); PH,URINE 6.5 (5.0-8.0); PROTEIN,URINE TRACE (Negative); UROBILINOGEN,URINE 0.2 (0.2-1.0)
[2022-09-06 06:21] LABS: BACTERIA,URINE FEW /hpf (FEW); MUCUS,URINE MODERATE /hpf (FEW); RBC,URINE 0-5 /hpf (0-5); SQUAMOUS EPITHELIAL CELLS,UR 0-5 /hpf (0-5); WBC,URINE 0-5 /hpf (0-5)
[2022-09-06 06:29] LABS: SLIDE REVIEW ABNORMAL SMEAR
[2022-09-06 06:33] LABS: A/G RATIO 1.2 (1-2); ALBUMIN 4.2 g/dl (3.4-5.0); ANION GAP 15.7 (5-15); BILIRUBIN TOTAL 0.5 mg/dL (0.2-1.0); BUN/CREATININE RATIO 16.3 (14-18); CALCIUM 8.7 mg/dL (8.5-10.1); CREATININE 0.8 mg/dL (0.55-1.02); POTASSIUM,K 3.7 mEq/L (3.5-5.1); PROTEIN TOTAL,TP 7.8 g/dl (6.4-8.2)
[2022-09-06 09:02] VITALS: BP 112/61; PULSE 89
== END 2022-09-06 08:30 | disposition home or self-care (01) ==
LOC: JD.ED 05:33
DX: E86.0 Dehydration (principal); J45.909 Unspecified asthma, uncomplicated; E66.9 Obesity, unspecified; Z88.1 Allergy status to other antibiotic agents; Z91.040 Latex allergy status; Z86.16 Personal history of COVID-19; Z68.33 Body mass index [BMI] 33.0-33.9, adult
CPT/HCPCS: 36415; 80053; 81001; 85025; 96361; 96374; 99284; J2405; J7120; 99283

== ENCOUNTER 2023-05-21 08:20 | Emergency (ER) | payer BC ==
[2023-05-21] MEDS ORDERED: Ondansetron 4 MG/2 ML SDV IVPUSH ONE (09:35)
[2023-05-21] MEDS ORDERED: Sodium Chloride 0.9% 1,000 ML IV ONE (09:37)
[2023-05-21 09:38] LABS: BASOPHILS PERCENT AUTO 0.4 % (0.0-1.0); EOSINOPHILS PERCENT AUTO 0.4 % (0.0-6.0); HEMATOCRIT 48.3 % (37.0-47.0); HEMOGLOBIN 16.8 gm/dl (12.0-16.0); IMMATURE GRAN ABSOLUTE AUTO 0.02 K/mm3 (0.00-0.05); IMMATURE GRAN PERCENT AUTO 0.3 % (0.0-0.4); LYMPHOCYTES PERCENT AUTO 12.5 % (24.0-44.0); MEAN CORPUSCULAR HEMOGLOBIN 29.3 pg (28.0-32.0); MEAN CORPUSCULAR HGB CONC 34.8 g/dl (32.0-36.0); MEAN CORPUSCULAR VOLUME 84.3 fl (83.0-99.0); MEAN PLATELET VOLUME 10.3 fl (9.4-12.3); MONOCYTES ABSOLUTE AUTO 0.6 K/mm3 (0.0-0.8); MONOCYTES PERCENT AUTO 7.5 % (0.0-8.0); NEUTROPHILS ABSOLUTE AUTO 6.3 K/mm3 (1.8-7.7); NEUTROPHILS PERCENT AUTO 78.9 % (41.0-71.0); PLATELET COUNT,PLT 357 K/mm3 (150-400); RED BLOOD CELL COUNT 5.73 M/mm3 (4.10-5.30); WHITE BLOOD CELL COUNT,WBC 7.97 K/mm3 (3.9-11.3)
[2023-05-21] MEDS ORDERED: Iopamidol 612 MG/ML 100 ML Bottle IVPUSH ONE (09:40)
[2023-05-21] MEDS ORDERED: Sodium Chloride 0.9% 10 ML Syringe FLUSH PRN (09:40)
[2023-05-21 09:54] LABS: A/G RATIO 1.3 (1-2); ALANINE AMINOTRANSFERASE,ALT 32 U/L (14-59); ALBUMIN 4.6 g/dl (3.4-5.0); ALKALINE PHOSPHATASE 67 U/L (46-116); ANION GAP 19.2 (5-15); ASPARTATE AMNIOTRANSFERASE,AST 16 U/L (15-37); BILIRUBIN TOTAL 0.6 mg/dL (0.2-1.0); BLOOD UREA NITROGEN,BUN 10 mg/dL (7-18); BUN/CREATININE RATIO 12.5 (14-18); CALCIUM 9.3 mg/dL (8.5-10.1); CARBON DIOXIDE,CO2 24 mEq/L (21-32); CHLORIDE,CL 101 mEq/L (98-107); CREATININE 0.8 mg/dL (0.55-1.02); ESTIMATED GFR 100 mL/min (>60); GLUCOSE RANDOM 114 mg/dL (70-99); LIPASE 12 U/L (16-77); POTASSIUM,K 3.2 mEq/L (3.5-5.1); PROTEIN TOTAL,TP 8.2 g/dl (6.4-8.2); SODIUM,NA 141 mEq/L (136-145)
[2023-05-21 09:57] LABS: HCG QUANTITATIVE < 1.0 mIU/mL
[2023-05-21 10:46] LABS: APPEARANCE,URINE CLEAR (Clear); BILIRUBIN,URINE 1+ (Negative); COLOR,URINE YELLOW (Yellow); GLUCOSE,URINE NEGATIVE (Negative); KETONES,URINE 3+ (Negative); LEUKOCYTE ESTERASE,URINE NEGATIVE (Negative); NITRITE,URINE NEGATIVE (Negative); OCCULT BLOOD,URINE NEGATIVE (Negative); PH,URINE 6.5 (5.0-8.0); PROTEIN,URINE TRACE (Negative); UROBILINOGEN,URINE 0.2 (0.2-1.0)
[2023-05-21 10:54] LABS: BACTERIA,URINE FEW /hpf (FEW); EPITHELIAL CELLS,URINE 0-5 /hpf (0-5); MUCUS,URINE FEW /hpf (FEW); RBC,URINE 0-5 /hpf (0-5); WBC,URINE 0-5 /hpf (0-5)
[2023-05-21] MEDS ORDERED: Potassium Chloride 20 MEQ Tab.ER PO ONE (11:26)
[2023-05-21 12:01] VITALS: BP 128/87; PULSE 82
== END 2023-05-21 11:59 | disposition home or self-care (01) ==
LOC: JD.ED 08:20
DX: K31.84 Gastroparesis (principal); E87.6 Hypokalemia; Z88.1 Allergy status to other antibiotic agents; Z91.040 Latex allergy status
CPT/HCPCS: 36415; 74177; 80053; 81001; 83690; 84702; 85025; 87086; 96361; 96374; 99284; A9270; J2405; J3490; J7030